=== PATIENT | female | born 1985 | race Caucasian/White ===

== ENCOUNTER 2016-07-19 04:55 | Emergency (ER) | payer MEDICAID, OTHER ==
[~2016-07-19] VITALS: Ht 170.2 cm; Wt 62.6 kg
[~2016-07-19 04:55] MED LIST: ACET-2619 PO; FERR325E14 PO; PREN-234 PO
[2016-07-19 04:57] VITALS: BP 125/72
[2016-07-19] MEDS ORDERED: NACL 0.9% 1,000 ML IV ONE (05:08)
[2016-07-19] MEDS ORDERED: ACETAMINOPHEN EXTRA STRENGTH 500 MG TAB PO ONE (05:10)
--- NOTE | 2016-07-19 05:20 | NUR ---
PT IS 30/F BIB SELF TO ED WITH C/O CRAMPING AND TIGHTNESS IN ABDOMEN SINCE TUESDAY. PT WAS TOLD TO COME TO ER IF CRAMPING LASTED L0NGER THAN 2 HOURS. PT IS 20 WEEKS . THIS IS 3RD . PT STATED SHE HAS HX OF CRAMPING WITH ALL 3 PREGANCIES. PT STATES MED HX OF RIGHT ARM SURGERY. DENIES V/D; SKIN IS PINK/WARM/DRY; AAOX4 WITH EVEN AND STEADY GAIT; LUNGS CLEAR BL; HR EVEN AND REGULAR; PT DENIES ANY FEVER, CP, SOB, OR COUGH AT THIS TIME; PATIENT STATES PAIN OF 4/10 AT THIS TIME; VSS; PATIENT POSITIONED FOR COMFORT; HOB ELEVATED; BEDRAILS UP X2; BED DOWN. ER MD MADE AWARE OF PT STATUS.
--- NOTE | 2016-07-19 05:48 | NUR ---
PT HAVING US DONE AT BEDSIDE.
[2016-07-19 06:15] LABS: APPEARANCE,URINE HAZY (CLEAR); BILIRUBIN,URINE NEGATIVE (NEGATIVE); BLOOD, URINE NEGATIVE (NEGATIVE); COLOR,URINE YELLOW (YELLOW); LEUKOCYTE ESTERASE ,URINE TRACE (NEGATIVE); NITRITE, URINE NEGATIVE (NEGATIVE); PH,URINE 6.5 (5.0-9.0); PROTEIN,URINE NEGATIVE (NEGATIVE); UGLUCOSE NEGATIVE (NEGATIVE); UROBILINOGEN,URINE 0.2 EU/dL (0.2 - 1)
[2016-07-19 06:34] LABS: RBC,URINE 0-2 /HPF (0-5)
[2016-07-19 06:35] LABS: BACTERIA,URINE 1+ /HPF (None Seen); MUCUS,URINE 1+ /LPF (None Seen)
[2016-07-19 06:45] VITALS: BP 102/72
--- NOTE | 2016-07-19 06:45 | NUR ---
Patient discharged with v/s stable. Written and verbal after care instructions given and explained. Patient alert, oriented and verbalized understanding of instructions. Ambulatory with steady gait. All questions addressed prior to discharge. ID band removed. Patient advised to follow up with PMD. Rx of MACROBID CAPSULE given. Patient educated on indication of medication including possible reaction and side effects. Opportunity to ask questions provided and answered.
== END 2016-07-19 06:45 | disposition home or self-care (01) ==
LOC: MED 04:55
DX: O23.42 Unspecified infection of urinary tract in pregnancy, second trimester (principal); O20.0 Threatened abortion
CPT/HCPCS: 76805; 81001; 87086; 96360; 99285; J7030; Q0092

== ENCOUNTER 2016-09-07 04:50 | Observation (INO) | payer OTHER ==
[~2016-09-07] VITALS: Ht 170.2 cm; Wt 66.2 kg
[2016-09-07 05:21] VITALS: BP 98/61
[2016-09-07] MEDS ORDERED: TERBUTALINE 1 MG/ML VIAL SUBQ SCH (08:15)
[2016-09-07] MEDS ORDERED: TERBUTALINE 1 MG/ML VIAL SUBQ ONE (08:21)
--- NOTE | 2016-09-07 09:14 | NUR ---
PATIENT HAS BEEN SCREENED AND CATEGORIZED LOW NUTRITION RISK. PATIENT WILL BE SEEN WITHIN 7 DAYS OF ADMISSION. 09/13/[address]
[2016-09-07 13:07] LABS: APPEARANCE,URINE CLEAR (CLEAR); BILIRUBIN,URINE NEGATIVE (NEGATIVE); BLOOD, URINE NEGATIVE (NEGATIVE); COLOR,URINE YELLOW (YELLOW); LEUKOCYTE ESTERASE ,URINE NEGATIVE (NEGATIVE); NITRITE, URINE NEGATIVE (NEGATIVE); PH,URINE 6.5 (5.0-9.0); PROTEIN,URINE NEGATIVE (NEGATIVE); UGLUCOSE NEGATIVE (NEGATIVE); UROBILINOGEN,URINE 0.2 EU/dL (0.2 - 1)
== END 2016-09-07 16:20 | disposition home or self-care (01) ==
LOC: MLD 04:50
PROVIDERS: ADMIT Obstetrics & Gynecology; ATTEND Obstetrics & Gynecology
DX: O26.892 Other specified pregnancy related conditions, second trimester (principal); R10.9 Unspecified abdominal pain; Z3A.25 25 weeks gestation of pregnancy
CPT/HCPCS: 76805; 81003; 96372; C1758; G0378; J3105; Q0092

== ENCOUNTER 2016-10-20 16:01 | Observation (INO) | payer OTHER ==
[~2016-10-20] VITALS: Ht 170.2 cm; Wt 70.3 kg
[~2016-10-20 16:01] MED LIST changes: -ACET-2619 PO; -FERR325E14 PO
[2016-10-20 16:45] VITALS: BP 109/57
[2016-10-20 17:45] LABS: APPEARANCE,URINE CLEAR (CLEAR); BILIRUBIN,URINE NEGATIVE (NEGATIVE); BLOOD, URINE NEGATIVE (NEGATIVE); COLOR,URINE YELLOW (YELLOW); LEUKOCYTE ESTERASE ,URINE NEGATIVE (NEGATIVE); NITRITE, URINE NEGATIVE (NEGATIVE); PROTEIN,URINE NEGATIVE (NEGATIVE); UGLUCOSE NEGATIVE (NEGATIVE); UROBILINOGEN,URINE 0.2 EU/dL (0.2 - 1)
[2016-10-20 18:19] LABS: INR 0.9 (0.8-1.2); PROTHROMBIN TIME 9.4 secs (10.8-13.4)
== END 2016-10-20 20:04 | disposition home or self-care (01) ==
LOC: MLD 16:01
PROVIDERS: ADMIT Obstetrics & Gynecology; ATTEND Obstetrics & Gynecology
DX: O26.893 Other specified pregnancy related conditions, third trimester (principal); R10.9 Unspecified abdominal pain; Z3A.31 31 weeks gestation of pregnancy
CPT/HCPCS: 36415; 81003; 85384; 85610; 85730; C1758; G0378

== ENCOUNTER 2016-12-03 16:10 | Observation (INO) | payer OTHER ==
[~2016-12-03] VITALS: Ht 170.2 cm; Wt 73.5 kg
[2016-12-03] MEDS ORDERED: FERR325E14 PO (16:31)
[2016-12-03 16:55] VITALS: BP 108/67
== END 2016-12-03 20:15 | disposition home or self-care (01) ==
LOC: MLD 16:10
PROVIDERS: ADMIT Obstetrics & Gynecology; ATTEND Obstetrics & Gynecology
DX: O26.899 Other specified pregnancy related conditions, unspecified trimester (principal); R10.9 Unspecified abdominal pain; Z3A.00 Weeks of gestation of pregnancy not specified
CPT/HCPCS: 59025; 76815; G0378; Q0092

== ENCOUNTER 2016-12-10 14:35 | Observation (INO) | payer OTHER ==
[~2016-12-10 14:35] MED LIST changes: +FERR325E14 PO
[2016-12-10 16:31] VITALS: BP 107/63
== END 2016-12-10 19:30 | disposition home or self-care (01) ==
LOC: MLD 14:35
PROVIDERS: ADMIT Obstetrics & Gynecology; ATTEND Obstetrics & Gynecology
DX: O26.893 Other specified pregnancy related conditions, third trimester (principal); R10.9 Unspecified abdominal pain; Z3A.39 39 weeks gestation of pregnancy
CPT/HCPCS: 59025; 76815; G0378; Q0092

== ENCOUNTER 2016-12-11 21:30 | Inpatient (IN) | payer OTHER ==
[~2016-12-11] VITALS: Ht 170.2 cm; Wt 76.2 kg
[2016-12-11] MEDS ORDERED: LACTATED RINGERS 1,000 ML IV SCH (21:56)
[2016-12-11] MEDS ORDERED: MISOPROSTOL 25 MCG TAB VG PRN (22:00)
[2016-12-11] MEDS ORDERED: OXYTOCIN 10 UNITS/ML VIAL IM SCH (22:00)
[2016-12-11] MEDS ORDERED: OXYTOCIN 20 UNITS/LR PREMIX 1,000 ML IV PRN (22:00)
[2016-12-11] MEDS ORDERED: CARBOPROST 250 MCG/ML AMP IM PRN (22:00)
[2016-12-11] MEDS ORDERED: METHYLERGONOVINE 0.2 MG/ML AMP IM PRN (22:00)
[2016-12-11 22:45] LABS: BASOPHILS # (AUTO) 0.1 K/uL (0.00-0.22); BASOPHILS % (AUTO) 1.5 % (0.0-2.0); EOSINOPHILS # (AUTO) 0.1 K/uL (0-0.4); EOSINOPHILS % (AUTO) 1.8 % (0.0-4.0); HEMATOCRIT 31.6 % (36-48); HEMOGLOBIN 10.3 g/dL (12.0-16.0); LYMPHOCYTES # (AUTO) 1.6 K/uL (2.5-16.5); LYMPHOCYTES % (AUTO) 20.2 % (20.5-51.1); MEAN CORPUSCULAR HEMOGLOBIN 31 pg (27-31); MEAN CORPUSCULAR HGB CONC 33 g/dL (33-37); MEAN CORPUSCULAR VOLUME 93 fL (80-94); MONOCYTES # (AUTO) 0.4 K/uL (0.8-1.0); MONOCYTES % (AUTO) 4.8 % (1.7-9.3); NEUTROPHILS # (AUTO) 5.8 K/uL (1.8-7.7); NEUTROPHILS % (AUTO) 71.7 % (42.2-75.2); PLATELET COUNT (AUTO) 178 K/uL (140-450); RED BLOOD CELL COUNT(AUTO) 3.39 MIL/uL (4.20-5.40)
[2016-12-11 22:46] LABS: APPEARANCE,URINE HAZY (CLEAR); BILIRUBIN,URINE NEGATIVE (NEGATIVE); BLOOD, URINE NEGATIVE (NEGATIVE); COLOR,URINE YELLOW (YELLOW); LEUKOCYTE ESTERASE ,URINE 3+ (NEGATIVE); NITRITE, URINE NEGATIVE (NEGATIVE); PH,URINE 6.5 (5.0-9.0); PROTEIN,URINE NEGATIVE (NEGATIVE); UGLUCOSE NEGATIVE (NEGATIVE); UROBILINOGEN,URINE 0.2 EU/dL (0.2 - 1)
[2016-12-11 22:51] LABS: BACTERIA,URINE 2+ /HPF (None Seen); RBC,URINE 0-5 /HPF (0-5); WBC,URINE 15-30 /HPF (0-5)
[2016-12-11 23:04] LABS: ANION GAP 10.1 (8-16); CALCIUM 8.3 mg/dL (8.5-10.1); CARBON DIOXIDE 26.5 mmol/L (21-32); CREATININE 0.7 mg/dL (0.6-1.3); POTASSIUM 3.6 mmol/L (3.5-5.1)
[2016-12-11 23:10] LABS: ALBUMIN 2.4 g/dL (3.4-5.0); TOTAL BILIRUBIN 0.2 mg/dL (0.0-1.0); TOTAL PROTEIN, SERUM 5.9 g/dL (6.4-8.2)
[2016-12-12] MEDS ORDERED: OXYTOCIN 20 UNITS/LR PREMIX 1,000 ML IV ONE (03:05)
--- NOTE | 2016-12-12 06:51 | NUR ---
PATIENT HAS BEEN SCREENED AND CATEGORIZED LOW NUTRITION RISK. PATIENT WILL BE SEEN WITHIN 7 DAYS OF ADMISSION. 12/17/16 MELANY CAMPOS MS, RDN
[2016-12-12] MEDS ORDERED: ROPIVACAINE 0.2%/NS PREMIX 250 ML EPI ONE (09:56)
[2016-12-12] MEDS ORDERED: ROPIVACAINE 0.2%/NS PREMIX 250 ML EPI SCH (10:05)
[2016-12-12] MEDS ORDERED: OXYTOCIN 10 UNITS/ML VIAL ONE (13:29)
[2016-12-12] MEDS ORDERED: BISACODYL 5 MG TABEC PO PRN (14:00)
[2016-12-12] MEDS ORDERED: OXYTOCIN 20 UNITS/LR PREMIX 1,000 ML IV SCH (14:00)
[2016-12-12] MEDS ORDERED: MEASLES, MUMPS, AND RUBELLA 1 VIAL SQVAC PRN (14:00)
[2016-12-12] MEDS ORDERED: ACETAMINOPHEN 325 MG TAB PO PRN (14:00)
[2016-12-12] MEDS: oxyCODONE/APAP 5/325 MG 1 TAB TAB PO PRN (19:44)
[2016-12-13] MEDS: oxyCODONE/APAP 5/325 MG 1 TAB TAB PO PRN (05:32)
[2016-12-13 08:00] LABS: BASOPHILS # (AUTO) 0.1 K/uL (0.00-0.22); BASOPHILS % (AUTO) 0.7 % (0.0-2.0); EOSINOPHILS # (AUTO) 0.1 K/uL (0-0.4); EOSINOPHILS % (AUTO) 0.9 % (0.0-4.0); HEMOGLOBIN 11.3 g/dL (12.0-16.0); LYMPHOCYTES # (AUTO) 1.4 K/uL (2.5-16.5); LYMPHOCYTES % (AUTO) 12.3 % (20.5-51.1); MEAN CORPUSCULAR HEMOGLOBIN 30 pg (27-31); MEAN CORPUSCULAR HGB CONC 32 g/dL (33-37); MEAN CORPUSCULAR VOLUME 94 fL (80-94); MONOCYTES # (AUTO) 0.4 K/uL (0.8-1.0); MONOCYTES % (AUTO) 3.3 % (1.7-9.3); NEUTROPHILS # (AUTO) 9.6 K/uL (1.8-7.7); NEUTROPHILS % (AUTO) 82.8 % (42.2-75.2); PLATELET COUNT (AUTO) 167 K/uL (140-450); RED BLOOD CELL COUNT(AUTO) 3.73 MIL/uL (4.20-5.40); RED CELL DISTRIBUTION WIDTH 13.8 % (11.6-13.7); WHITE BLOOD COUNT (AUTO) 11.6 K/uL (4.8-10.8)
[2016-12-14] MEDS ORDERED: ACET-2619 PO (11:31)
== END 2016-12-14 13:05 | disposition home or self-care (01) | DRG 560 ==
LOC: MLD 21:30 → MFCC 12-12 17:44
PROVIDERS: ADMIT Obstetrics & Gynecology; ATTEND Obstetrics & Gynecology
PROC: 10E0XZZ Delivery of Products of Conception, External Approach (ICD-10-PCS; principal; 2016-12-12)
PROC: 10907ZC Drainage of Amniotic Fluid, Therapeutic from Products of Conception, Via Natural or Artificial Opening (ICD-10-PCS; 2016-12-12)
PROC: 00HU33Z Insertion of Infusion Device into Spinal Canal, Percutaneous Approach (ICD-10-PCS; 2016-12-12)
PROC: 3E0R3CZ (ICD-10-PCS; 2016-12-12)
PROC: 3E0234Z Introduction of Serum, Toxoid and Vaccine into Muscle, Percutaneous Approach (ICD-10-PCS; 2016-12-13)
DX: O69.81X0 Labor and delivery complicated by cord around neck, without compression, not applicable or unspecified (principal); Z23 Encounter for immunization; Z37.0 Single live birth; Z3A.39 39 weeks gestation of pregnancy
CPT/HCPCS: 36415; 51702; 59409; 80053; 81001; 85025; 85379; 86592; 86886; 86900; 86901; 87086; 90715; J2590; J2795; J7120